=== PATIENT | female | born 1940 | race Caucasian/White ===

== ENCOUNTER 2020-05-19 16:28 | Emergency (ER) | payer MEDICARE, BC ==
[~2020-05-19] VITALS: Ht 167.6 cm; Wt 105.0 kg
[2020-05-19] MEDS ORDERED: BACITRACIN ZINC TOPICAL OINT PACKET. TP ONE (17:15)
[2020-05-19] MEDS ORDERED: HYDROcodone/APAP 5/325MG 1 TAB TABLET PO ONE (17:15)
[2020-05-19] MEDS ORDERED: HYDROcodone/APAP 5/325MG 1 TAB TABLET ONE (17:19)
--- NOTE | 2020-05-19 17:59 | RAD ---
Study: XR SHOULDER_LEFT 2+ VIEWS Indication: Fall. Comparison: None. Findings: Noting osteopenia no acute fracture is identified at the left shoulder girdle. Glenohumeral and acrom ioclavicular joint alignment is maintained. Small focus of chronic mineralization projecting adjacent to the superior glenoid. Mild glenohumeral and acromioclavicular joint arthrosis. No displaced fracture of the partially assessed ribs. Impression: Noting osteopenia no acute fracture is identified at the left shoulder. No traumatic malalignment. Electronically signed by: RAFAELA FISHER MD (05/19/2020 5:57 PM) [facility]
--- NOTE | 2020-05-19 18:07 | RAD ---
STUDY: 1. CT head without contrast 2. CT maxillofacial without contrast 3. CT cervical spine without contrast INDICATION: Fall. Blunt head injury. COMPARISON: None. TECHNIQUE: Axial CT imaging of the head, maxillofacial structures and cervical spine performed withou t the use of intravenous contrast. Sagittal and coronal reformats were obtained. One or more of the following individualized dose reduction techniques were utilized for this examinat ion: 1. Automated exposure control 2. Adjustment of the mA and/or kV according to patient size 3. Use of iterative reconstruction technique. FINDINGS: CT HEAD: Mild study degradation on account of streak artifact. Diagnostic utility is mostly maintained. No acute intracranial hemorrhage. No localized mass effect, midline shift or hydrocephalus. Hernandez-whit e matter differentiation is maintained. Parenchymal volume loss and white matter findings most frequently on account of chronic microvascular ischemic change. Intracranial calcific atherosclerosis. No large scalp hematoma. Unremarkable orbits. No depressed calvarial fracture. CT MAXILLOFACIAL: No acute facial bone fracture. No traumatic malalignment across the temporomandibular joints. Numerou s missing teeth and several dental caries. No hemorrhage within the paranasal sinuses. Normally aerat ed mastoid air cells and middle ears. No retrobulbar hematoma. Symmetric globes. CT CERVICAL SPINE: No acute fracture or traumatic malalignment. Scattered cervical spondylosis without evidence for paxton re central canal narrowing. Predominantly mild osseous neural foraminal stenosis at several levels. Scattered calcific atherosclerosis. Retropharyngeal course of both cervical ICAs. Possible left thyro id lobe nodule not meeting size criteria for dedicated follow-up measuring approximately 1.3 cm. No a pical pneumothorax. IMPRESSION: CT HEAD: 1. No acute intracranial abnormality by CT. CT MAXILLOFACIAL: 1. No acute facial bone fracture. CT CERVICAL SPINE: 1. No acute fracture or traumatic malalignment. 2. Chronic observations detailed in the body the report. Electronically signed by: RAFAELA FISHER MD (05/19/2020 6:04 PM) [facility]
--- NOTE | 2020-05-19 18:10 | RAD ---
CT pelvis without contrast HISTORY: Hip pain after fall Axial helical images of the pelvis obtained without contrast and axial coronal and sagittal contrast was performed. The visualized osseous structures are grossly intact. The femoral acetabular relationship is normal b ilaterally. There is no free fluid. The urinary bladder appears normal. IMPRESSION: No acute findings. End impression CT lumbar spine without contrast History: Left hip pain after fall Axial helical images of the lumbar spine were obtained without contrast. Axial, coronal and sagittal reconstruction was performed. Findings: The vertebral bodies are aligned. There is no loss of vertebral body stature. Evaluation of the central canal is limited without contrast. Mild diffuse circumferential disc bulge and hypertrophy of facets and ligamentum flavum results in mi nimal central stenosis at L3-L4 and mild central stenosis at L4-L5. The neuroforamen are patent. There is multiple renal cysts on the left. This patchy opacity in the right lower lobe. Impression: 1. Right lower lobe infiltrate could be pneumonia. 2. Mild degenerative changes; no acute findings in the lumbosacral spine. End impression PQRS Compliance Statement: One or more of the following individualized dose reduction techniques were utilized for this examinat ion: 1. Automated exposure control 2. Adjustment of the mA and/or kV according to patient size 3. Use of iterative reconstruction technique Electronically signed by: Montana Cabrera III, MD (05/19/2020 6:07 PM) [facility]
--- NOTE | 2020-05-19 18:27 | PHYS DOC ---
Past History Past Medical History: Arthritis, High Cholesterol, Hypertension Additional Past Medical Histor: low potassium Past Surgical History: Appendectomy, Cholecystectomy, Hysterectomy, Tonsillectomy, Other Additional Past Surgical Histo: right shoulder Alcohol Use: None Adult General Chief Complaint Chief Complaint: MECHANICAL FALL HPI HPI Patient is a 79-year-old female presents to the emergency department complaining of a fall just prior to arrival. Patient states she was walking through a door when she tripped over the threshold and fell forward onto her face. Patient denies loss of consciousness, denies dizziness, complains of mild headache, states she has no neck pain, has face pain, left shoulder pain, left hip pain, and low back pain. Patient reports her pain a 8/10 on a 1-10 pain scale. Patient states that she is unsure of her low back hurts any worse than normal as she has chronic low back pain and treats with daily hydrocodone. Patient denies chest pain, denies chest congestion, denies shortness of breath, denies nasal congestion, denies sore throat, denies vision changes. Patient denies any other physical complaints or physical concerns. Patient denies allergies to medications, reports a surgical history of appendectomy, gallbladder removed, hysterectomy, right rotator cuff, right ankle ganglion removal. Patient reports her last tetanus immunization approximately 3 years ago. Review of Systems Review of Systems 14 body systems of review of systems have been reviewed. See HPI for pertinent positives and negative responses, otherwise all other systems are negative, nonpertinent or noncontributory. Current Medications Current Medications Patient reports taking Synthroid, a diuretic, carvedilol, and potassium supplement, 5/325 hydrocodone for chronic back pains. Current Medications Medications (Trade) Dose Ordered Sig/Jamie Start Time Stop Time Status Last Admin Dose Admin Acetaminophen/ Hydrocodone Bitart (Lortab 5/325) 1 tab STK-MED ONCE 05/19/20 17:19 05/19/20 17:19 DC Bacitracin (Bacitracin Topical Pkt) 1 pkt 1X ONCE 05/19/20 17:15 05/19/20 17:19 DC 05/19/20 17:21 1 PKT Allergies Allergies Allergies Coded Allergies Type Severity Reaction Last Updated Verified aspirin Adverse Reaction Mild 05/19/20 Yes Physical Exam Physical Exam Constitutional: Well developed, well nourished, no acute distress, non-toxic appearance. 79-year-old female in no apparent distress. HENT: Normocephalic, atraumatic, bilateral external ears normal, oropharynx moist, no oral exudates, nose normal. No trismus appreciated, no drooling. No abnormality with bite. Dentition intact, abrasion to face at chin and nose. No depressions or swelling noted to the head or scalp. No lymphadenopathy of the head or neck appreciated. Eyes: PERRLA, EOMI, conjunctiva normal, no discharge. Pupils 3 mm. Neck: Normal range of motion, no tenderness, supple, no stridor. No midline C- spine tenderness, no meningismus signs, no nuchal rigidity appreciated. Cardiovascular:Heart rate regular rhythm, no murmur, heart sounds S1-S2 to auscultation. Lungs & Thorax: Bilateral breath sounds clear to auscultation all lung jamil, no adventitious lung sounds appreciated. Abdomen: Bowel sounds normal, soft, no tenderness, no masses, no pulsatile masses. Skin: Warm, dry, no erythema, no rash. Abrasion to nose and chin. No bleeding appreciated. Back: No CVA tenderness on the right or left, pain to lumbar area to palpation.. Extremities: No tenderness, no cyanosis, no clubbing, ROM intact, no edema. Except for right shoulder, pain to palpation anterior aspect right shoulder, limited passive range of motion related to pain, distal radial pulse 2+, distal cap refill less than 2 seconds. No deformity appreciated, no crepitus appreciated. Patient left hip pain to palpation, no deformity appreciated, no external rotation or shortening of left lower extremity appreciated, no crepitus appreciated, distal cap refill less than 2 seconds, 2+ dorsalis pedis/posterior tibial pulse. Neurologic: Alert and oriented X 3, normal motor function, normal sensory function, no focal deficits noted. Psychologic: Affect normal, judgement normal, mood normal. Current Patient Data Vital Signs Vital Signs Date Time Temp Pulse Resp B/P (MAP) Pulse Ox O2 Delivery O2 Flow Rate FiO2 05/19/20 17:21 18 97 05/19/20 16:28 98.6 64 190/91 (124) EKG EKG [] Radiology/Procedures Radiology/Procedures PATIENT: KIARA GALLEGOS MACCOUNT: [id number] : 1940 LOCATION: ER AGE: 79 SEX: F EXAM STATUS: REG ER ORD. PHYSICIAN: DANYA HEIN APRN REASON: FALL PROCEDURE: SHOULDER 2+V LEFT Study: XR SHOULDER_LEFT 2+ VIEWS Indication: Fall. Comparison: None. Findings: Noting osteopenia no acute fracture is identified at the left shoulder girdle. Glenohumeral and acromioclavicular joint alignment is maintained. Small focus of chronic mineralization projecting adjacent to the superior glenoid. Mild glenohumeral and acromioclavicular joint arthrosis. No displaced fracture of the partially assessed ribs. Impression: Noting osteopenia no acute fracture is identified at the left shoulder. No traumatic malalignment. Electronically signed by: RAFAELA FISHER MD (05/19/2020 5:57 PM) [facility] DICTATED AND SIGNED BY: RAFAELA FISHER MD DATE: 05/19/201754 CC: DANYA HEIN APRN; JAMEY BLAIR MD ~MTH0 0 PATIENT: KIARA GALLEGOS MACCOUNT: [id number] : 1940 LOCATION: ER AGE: 79 SEX: F EXAM STATUS: REG ER ORD. PHYSICIAN: DANYA HEIN APRN REASON: FALL,FALL, LEFT HIP PAIN PROCEDURE: CT PELVIS WO CONTRAST CT pelvis without contrast HISTORY: Hip pain after fall Axial helical images of the pelvis obtained without contrast and axial coronal and sagittal contrast was performed. The visualized osseous structures are grossly intact. The femoral acetabular relationship is normal bilaterally. There is no free fluid. The urinary bladder appears normal. IMPRESSION: No acute findings. End impression CT lumbar spine without contrast History: Left hip pain after fall Axial helical images of the lumbar spine were obtained without contrast. Axial, coronal and sagittal reconstruction was performed. Findings: The vertebral bodies are aligned. There is no loss of vertebral body stature. Evaluation of the central canal is limited without contrast. Mild diffuse circumferential disc bulge and hypertrophy of facets and ligamentum flavum results in minimal central stenosis at L3-L4 and mild central stenosis at L4-L5. The neuroforamen are patent. There is multiple renal cysts on the left. This patchy opacity in the right lower lobe. Impression: 1. Right lower lobe infiltrate could be pneumonia. 2. Mild degenerative changes; no acute findings in the lumbosacral spine. End impression PQRS Compliance Statement: One or more of the following individualized dose reduction techniques were utilized for this examination: 1. Automated exposure control 2. Adjustment of the mA and/or kV according to patient size 3. Use of iterative reconstruction technique Electronically signed by: Corinne Pruitt III, MD (05/19/2020 6:07 PM) [facility] DICTATED AND SIGNED BY: CORINNE PRUITT III, MD DATE: 05/19/20 1800 CC: DANYA HEIN APRN; JAMEY BLAIR MD ~MTH0 0 PATIENT: KIARA GALLEGOS MACCOUNT: [id number] : 1940 LOCATION: ER AGE: 79 SEX: F EXAM STATUS: REG ER ORD. PHYSICIAN: DANYA HEIN APRN REASON: FALL, BLUNT HEAD INJURY PROCEDURE: CT HEAD AND MAXILLOFACIAL WO STUDY: 1. CT head without contrast 2. CT maxillofacial without contrast 3. CT cervical spine without contrast INDICATION: Fall. Blunt head injury. COMPARISON: None. TECHNIQUE: Axial CT imaging of the head, maxillofacial structures and cervical spine performed without the use of intravenous contrast. Sagittal and coronal reformats were obtained. One or more of the following individualized dose reduction techniques were utilized for this examination: 1. Automated exposure control 2. Adjustment of the mA and/or kV according to patient size 3. Use of iterative reconstruction technique. FINDINGS: CT HEAD: Mild study degradation on account of streak artifact. Diagnostic utility is mostly maintained. No acute intracranial hemorrhage. No localized mass effect, midline shift or hydrocephalus. Hernandez-white matter differentiation is maintained. Parenchymal volume loss and white matter findings most frequently on account of chronic microvascular ischemic change. Intracranial calcific atherosclerosis. No large scalp hematoma. Unremarkable orbits. No depressed calvarial fracture. CT MAXILLOFACIAL: No acute facial bone fracture. No traumatic malalignment across the tempo romandibular joints. Numerous missing teeth and several dental caries. No hemorrhage within the paranasal sinuses. Normally aerated mastoid air cells and middle ears. No retrobulbar hematoma. Symmetric globes. CT CERVICAL SPINE: No acute fracture or traumatic malalignment. Scattered cervical spondylosis without evidence for severe central canal narrowing. Predominantly mild osseous neural foraminal stenosis at several levels. Scattered calcific atherosclerosis. Retropharyngeal course of both cervical IC As. Possible left thyroid lobe nodule not meeting size criteria for dedicated follow-up measuring approximately 1.3 cm. No apical pneumothorax. IMPRESSION: CT HEAD: 1. No acute intracranial abnormality by CT. CT MAXILLOFACIAL: 1. No acute facial bone fracture. CT CERVICAL SPINE: 1. No acute fracture or traumatic malalignment. 2. Chronic observations detailed in the body the report. Electronically signed by: RAFAELA FISHER MD (05/19/2020 6:04 PM) [facility] DICTATED AND SIGNED BY: RAFAELA FISHER MD DATE: 05/19/201756 CC: DANYA HEIN APRN; JAMEY BLAIR MD ~MTH0 0 Heart Score C/O Chest Pain: No Risk Factors: Risk Factors: DM, Current or recent (<one month) smoker, HTN, HLP, family history of CAD, obesity. Risk Scores: Risk Factors: DM, Current or recent (<one month) smoker, HTN, HLP, family history of CAD, obesity. Course & Med Decision Making Course & Med Decision Making Pertinent Labs and Imaging studies reviewed. (See chart for details) 79-year-old female, vital signs reviewed, presents emergency department concerning trip and fall just prior to arrival. Physical examination concerning for possible head, C-spine, left shoulder, left hip, low back injury related to fall. Abrasions to face. patient's tetanus status is up-to-date. ED nursing cleansed patient's abrasions and applied bacitracin ointment. CT and x-ray imaging was ordered. CT and x-ray imaging of head, maxillofacial bones, C-spine, left shoulder, left hip and pelvis, L-spine were negative for acute fracture or acute findings except for an incidental finding of a right lower lobe infiltrate with suspected pneumonia per house radiologist interpretation. Upon reevaluation of the patient, the patient's vital signs remain within normal limits, the patient is not hypoxic, the patient denies chest pain or shortness of breath. Discussed with patient this incidental finding, will start on oral antibiotics in the ED today and prescribe oral antibiotics for treatment of community-acquired pneumonia. The patient's curb 65 score equals 1, low likelihood of complications, recommendation to treat outpatient. Patient has good follow-up with her primary care physician Dr. Montes. Patient states she will call Dr. Montes tomorrow for a follow-up appointment and further investigation of this right lower lobe infiltrate. Patient states she will continue to take her prescribed hydrocodone for pain. Patient gave verbal understanding of discharge home instructions, follow-up with primary care for abnormal CT, antibiotic use, return to ER precautions and concerns, patient had no further questions or concerns and was discharged home without incident. Dragon Disclaimer Dragon Disclaimer This electronic medical record was generated, in whole or in part, using a voice recognition dictation system. Departure Departure: Impression: Primary Impression: Fall from slip, trip, or stumble Additional Impressions: Facial abrasion Contusion of left shoulder Facial contusion Contusion of left hip Abnormal CT scan Community acquired pneumonia Disposition: 01 DC HOME SELF CARE/HOMELESS Condition: GOOD Referrals: JAMEY BLAIR MD (PCP) Patient Instructions: Pneumonia, Adult Additional Instructions: You are seen today for a trip and fall, the CT scanning and x-ray of your face, head, neck, right shoulder, lumbar spine, pelvis and left hip were negative for acute fracture, however the CT of your lumbar spine showed a possible pneumonia in your right lower lobe. I am starting you on antibiotics tonight, I have sent the antibiotic prescription to the pharmacy of your choice, please start tomorrow, please call Dr. Montes tomorrow for further evaluation of this pneumonia. Please return to the emergency department for worsening symptoms or other concerns. EMERGENCY DEPARTMENT GENERAL DISCHARGE INSTRUCTIONS Thank you for coming to [facility] (ED) today and trusting us with you care. We trust that you had a positivie experience in our Emergency Department. If you wish to speak to the department management, you may call the director at [phone]. YOUR FOLLOW UP INSTRUCTIONS ARE FOLLOWS: 1. Do you have a private Doctor? If you do not have a private doctor, please ask for a resource list of physicians or clinics that may be able to assist you with follow up care. 2. The Emergency Physician has interpreted your x-rays. The X-Ray specialist will also review them. If there is a change in the findings, you will be notified in 48 hours when at all possible. 3. A lab test or culture has been done, your results will be reviewed and you will be notified if you need a change in treatment. ADDITIONAL INSTRUCTIONS AND INFORMATION: 1. Your care today has been supervised by a physician who is specially trained in emergency care. Many problems require more than one evaluation for a complete diagnosis and treatment. We recommend that you schedule your follow up appointment as recommended to ensure complete treatment of you illness or injury. If you are unable to obtain follow up care and continue to have a problem, or if your condition worsens, we recommend that you return to the ED. 2. We are not able to safely determine your condition over the phone nor are we able to give sound medical advice over the phone. For these safety reasons, if you call for medical advice we will ask you to come to the ED for further evaluation. 3. If you have any questions regarding these discharge instructions please call the ED at [phone]. SAFETY INFORMATION: In the interest of safety, wellness, and injury prevention; we encourage you to wear your sealbelt, if you smoke; quite smoking, and we encourage family to use a protective helmet for bicycling and other sporting events that present an increased risk for head injury. IF YOUR SYMPTOMS WORSEN OR NEW SYMPTOMS DEVELOP, OR YOU HAVE CONCERNS ABOUT YOUR CONDITION; OR IF YOUR CONDITION WORSENS WHILE YOU ARE WAITING FOR YOUR FOLLOW UP APPOINTMENT; EITHER CONTACT YOUR PRIMARY CARE DOCTOR, THE PHYSICIAN WHOSE NAME AND NUMBER YOU WERE GIVEN, OR RETURN TO THE ED IMMEDIATELY. Scripts Azithromycin (AZITHROMYCIN TABLET) 250 Mg Tablet 1 PKG PO UD for PNEUMONIA for 5 Days, #6 TAB 0 Refills 2 the first day followed by 1 for days 2-5 Prov: DANYA HEIN APRN 05/19/20 Problem Qualifiers Primary Impression: Fall from slip, trip, or stumble Encounter type: initial encounter Qualified Codes: W01.0XXA - Fall on same level from slipping, tripping and stumbling without subsequent striking against object, initial encounter Additional Impressions: Facial abrasion Encounter type: initial encounter Qualified Codes: S00.81XA - Abrasion of other part of head, initial encounter Contusion of left shoulder Encounter type: initial encounter Qualified Codes: S40.012A - Contusion of left shoulder, initial encounter Facial contusion Encounter type: initial encounter Qualified Codes: S00.83XA - Contusion of other part of head, initial encounter Contusion of left hip Encounter type: initial encounter Qualified Codes: S70.02XA - Contusion of left hip, initial encounter Community acquired pneumonia Laterality: right Lung location: lower lobe of lung Qualified Codes: J18.9 - Pneumonia, unspecified organism DANYA HEIN APRN May 19, 2020 18:27
[2020-05-19] MEDS ORDERED: AZITHROMYCIN 250 MG TABLET. PO ONE (18:45)
[2020-05-19] MEDS ORDERED: AZIT250T6 PO (19:08)
[2020-05-19 19:18] VITALS: BP 165/65
== END 2020-05-19 19:18 | disposition home or self-care (01) ==
LOC: ER 16:28
DX: S00.83XA Contusion of other part of head, initial encounter (principal); S40.012A Contusion of left shoulder, initial encounter; S70.02XA Contusion of left hip, initial encounter; R94.8 Abnormal results of function studies of other organs and systems; J18.9 Pneumonia, unspecified organism; M19.90 Unspecified osteoarthritis, unspecified site; E78.00 Pure hypercholesterolemia, unspecified; I10 Essential (primary) hypertension; Z88.6 Allergy status to analgesic agent; W01.0XXA Fall on same level from slipping, tripping and stumbling without subsequent striking against object, initial encounter; Y93.01 Activity, walking, marching and hiking; Y92.89 Other specified places as the place of occurrence of the external cause; Y99.8 Other external cause status
CPT/HCPCS: 70450; 70486; 72125; 72131; 72192; 73030; 99285-25

== ENCOUNTER → 2020-05-27 | Outpatient (CLI) | payer MEDICARE, BC ==
[2020-05-19 19:18] VITALS: BP 165/65
[~2020-05-27] MED LIST: AZIT250T6 PO
--- NOTE | 2020-05-27 17:41 | RAD ---
Examination: Ultrasound thyroid HISTORY: History of thyroid nodule COMPARISON: None available FINDINGS: The right lower thyroid gland measures 2.6 x 1.1 x 0.8 cm .The left lobe of the thyroid gland measure s 3.7 x 1.5 x 1.3 cm. There is a 2.2 cm solid nodule with vascular flow within in the left lobe of th e thyroid gland. There is a 4 mm nodule identified in the right lower thyroid gland. The isthmus patrica ures 2 mm in AP dimension. IMPRESSION: 1. 2.2 cm nodule identified in the left lobe of thyroid gland. Recommend fine-needle aspiration. ACR TR4: Moderately suspicious. Electronically signed by: Nelson Parsons MD (05/27/2020 5:39 PM) [id number]
== END ==
LOC: US 13:19
PROVIDERS: ATTEND Family Medicine
DX: E04.2 Nontoxic multinodular goiter (principal)
CPT/HCPCS: 76536

== ENCOUNTER 2020-06-30 17:08 | Inpatient (IN) | payer MEDICARE ==
[~2020-06-30] VITALS: Ht 167.6 cm; Wt 100.7 kg
[2020-06-30] MEDS ORDERED: IV NORMAL SALINE 1,000ML 1,000 ML IV ONE (17:30)
--- NOTE | 2020-06-30 17:38 | EKG ---
[address] [address] Test Date: 2020-06-30 Test Time: 17:15:18 Pat Name: KIARA GALLEGOS Department: Room: Gender: F Yard Foreman: WM : 1940 Requested By: DANYA HEIN Order Number: [id number] Reading MD: Measurements Intervals Haugen Rate: 65 P: 28 MI: 200 QRS: 16 QRSD: 82 T: 36 QT: 416 QTc: 433 Interpretive Statements SINUS RHYTHM NORMAL ECG RI6.02 No previous ECG available for comparison
[2020-06-30] MEDS ORDERED: ONDANSETRON PF 4 MG/2 ML VIAL. ONE (17:48)
[2020-06-30 17:58] LABS: BASO % 0 % (0-3); EOS # 0.1 x10^3/uL (0.0-0.7); EOS % 1 % (0-3); HEMATOCRIT 41.5 % (36.0-47.0); HEMOGLOBIN 13.8 g/dL (12.0-15.5); LYMPH # 2.2 x10^3/uL (1.0-4.8); LYMPH % 20 % (24-48); MEAN CORPUSCULAR HEMOGLOBIN 30 pg (25-35); MEAN CORPUSCULAR HGB CONC 33 g/dL (31-37); MEAN CORPUSCULAR VOLUME 90 fL (79-100); MONO % 9 % (0-9); NEUT # 7.8 x10^3uL (1.8-7.7); NEUT % 70 % (31-73); PLATELET COUNT 273 x10^3/uL (140-400); RED BLOOD COUNT 4.64 x10^6/uL (3.50-5.40); RED CELL DISTRIBUTION WIDTH 13.6 % (11.5-14.5); WHITE BLOOD COUNT 11.1 x10^3/uL (4.0-11.0)
[2020-06-30] MEDS ORDERED: ONDANSETRON PF 4 MG/2 ML VIAL. IVP ONE (18:00)
[2020-06-30 18:04] LABS: CALCIUM 9.2 mg/dL (8.5-10.1); CREATININE 0.9 mg/dL (0.6-1.0); GFR 60.1; POTASSIUM 4.5 mmol/L (3.5-5.1)
[2020-06-30 18:10] LABS: ALBUMIN 3.6 g/dL (3.4-5.0); ALBUMIN/GLOBULIN RATIO 1.3 (1.0-1.7); TOTAL BILIRUBIN 1.9 mg/dL (0.2-1.0); TOTAL PROTEIN 6.4 g/dL (6.4-8.2)
--- NOTE | 2020-06-30 18:28 | PHYS DOC ---
Past History Past Medical History: Arthritis, GERD, High Cholesterol, Hypertension, Hypothyroid Additional Past Medical Histor: low potassium (ADALBERTO HEIN TERRAZZO HELPER) Past Surgical History: Appendectomy, Cholecystectomy, Hysterectomy, Tonsillectomy, Other Additional Past Surgical Histo: right shoulder (ADALBERTO HEIN APRN) Alcohol Use: None (ADALBERTO HEIN APRN) Adult General Chief Complaint Chief Complaint: HYPERTENSION HPI HPI Patient is a 79-year-old female presents emergency department complaining of decreased appetite over the past 10 days, feeling dizzy ever since syncopal episode while working in her garden approximately 2 days ago. Patient states that she lost balance while adjusting the bird feeder and fell backwards, patient states that she is unsure if she lost consciousness however this was not witnessed. Patient states that she hurts all over however has been hurting all over since she fell on May 19 of this year. Patient believes that her blood pressure is going high because when she goes from a sitting to a standing position her head pounds and her heart races. Patient denies chest pain, denies shortness of breath, denies cough fever chills nasal or chest congestion. Patient denies nausea vomiting constipation or diarrhea or abdominal pain. Diane maria reports her primary care physician is Dr. Montes, states she has no allergies to medicines but cannot tolerate aspirin as it upsets her stomach, takes Synthroid furosemide potassium Coreg and Protonix at home. Patient denies any other physical complaints or physical concerns. (ADALBERTO HEIN APRN) Review of Systems Review of Systems 14 body systems of review of systems have been reviewed. See HPI for pertinent positives and negative responses, otherwise all other systems are negative, nonpertinent or noncontributory. (ADALBERTO HEIN TERRAZZO HELPER) Current Medications Current Medications Current Medications Medications (Trade) Dose Ordered Sig/Jamie Start Time Stop Time Status Last Admin Dose Admin Fentanyl Citrate (Fentanyl 2ml Vial) 50 mcg 1X ONCE 06/30/20 18:15 06/30/20 18:16 DC Ondansetron HCl (Zofran) 4 mg 1X ONCE 06/30/20 18:00 06/30/20 18:01 DC 06/30/20 18:00 4 MG Sodium Chloride 1,000 ml @ 1,000 mls/hr 1X ONCE 06/30/20 17:30 06/30/20 18:29 06/30/20 17:30 1,000 MLS/HR (ADALBERTO HEIN APRN) Allergies Allergies Allergies Coded Allergies Type Severity Reaction Last Updated Verified aspirin Adverse Reaction Mild 05/19/20 Yes (ADALBERTO HEIN APRN) Physical Exam Physical Exam Constitutional: Well developed, well nourished, no acute distress, non-toxic appearance. 79-year-old female no apparent distress. HENT: Normocephalic, atraumatic, bilateral external ears normal, oropharynx moist, no oral exudates, nose normal. Oropharynx moist, pink, no deep tissue infectious process appreciated, no lymphadenopathy of the head or neck appreciated, bilateral TMs intact and within normal limits. No skull depressions, no contusions of the skull, no abrasions appreciated. No raccoon eyes, no dinh's sign appreciated. Eyes: PERRLA, EOMI, conjunctiva normal, no discharge. Neck: Normal range of motion, no tenderness, supple, no stridor. Cardiovascular:Heart rate regular rhythm, no murmur, heart sounds S1-S2 to auscultation. Lungs & Thorax: Bilateral breath sounds clear to auscultation no adventitious lung sounds appreciated. Abdomen: Bowel sounds normal, soft, no tenderness, no masses, no pulsatile masses. Skin: Warm, dry, no erythema, no rash. Back: No tenderness, no CVA tenderness. Extremities: No tenderness, no cyanosis, no clubbing, ROM intact, no edema. Neurologic: Alert and oriented X 3, normal motor function, normal sensory function, no focal deficits noted. Except for patient ataxia, patient unable to stand without "feeling shaky "and holding onto objects to remain balance. P atient unable to remain balance with eyes closed. Psychologic: Affect normal, judgement normal, mood normal. (ADALBERTO HEIN APRN) Current Patient Data Vital Signs Vital Signs Date Time Temp Pulse Resp B/P (MAP) Pulse Ox O2 Delivery O2 Flow Rate FiO2 06/30/20 18:12 97.5 66 153/72 (99) 99 06/30/20 17:25 18 Lab Results Laboratory Tests Test 06/30/20 17:37 White Blood Count 11.1 x10^3/uL (4.0-11.0) H Red Blood Count 4.64 x10^6/uL (3.50-5.40) Hemoglobin 13.8 g/dL (12.0-15.5) Hematocrit 41.5 % (36.0-47.0) Mean Corpuscular Volume 90 fL (79-100) Mean Corpuscular Hemoglobin 30 pg (25-35) Mean Corpuscular Hemoglobin Concent 33 g/dL (31-37) Red Cell Distribution Width 13.6 % (11.5-14.5) Platelet Count 273 x10^3/uL (140-400) Neutrophils (%) (Auto) 70 % (31-73) Lymphocytes (%) (Auto) 20 % (24-48) L Monocytes (%) (Auto) 9 % (0-9) Eosinophils (%) (Auto) 1 % (0-3) Basophils (%) (Auto) 0 % (0-3) Neutrophils # (Auto) 7.8 x10^3uL (1.8-7.7) H Lymphocytes # (Auto) 2.2 x10^3/uL (1.0-4.8) Monocytes # (Auto) 1.0 x10^3/uL (0.0-1.1) Eosinophils # (Auto) 0.1 x10^3/uL (0.0-0.7) Basophils # (Auto) 0.0 x10^3/uL (0.0-0.2) Sodium Level 141 mmol/L (136-145) Potassium Level 4.5 mmol/L (3.5-5.1) Chloride Level 104 mmol/L (98-107) Carbon Dioxide Level 32 mmol/L (21-32) Anion Gap 5 (6-14) L Blood Urea Nitrogen 14 mg/dL (7-20) Creatinine 0.9 mg/dL (0.6-1.0) Estimated GFR (Cockcroft-Gault) 60.1 BUN/Creatinine Ratio 16 (6-20) Glucose Level 106 mg/dL (70-99) H Calcium Level 9.2 mg/dL (8.5-10.1) Total Bilirubin 1.9 mg/dL (0.2-1.0) H Aspartate Amino Transferase (AST) 24 U/L (15-37) Alanine Aminotransferase (ALT) 19 U/L (14-59) Alkaline Phosphatase 66 U/L (46-116) Troponin I Quantitative < 0.017 ng/mL (0-0.055) Total Protein 6.4 g/dL (6.4-8.2) Albumin 3.6 g/dL (3.4-5.0) Albumin/Globulin Ratio 1.3 (1.0-1.7) (ADALBERTO HEIN APRN) EKG EKG EKG performed at 1715 by house respiratory therapy staff shows a normal sinus rhythm without ectopy heart rate 65 bpm, GA interval 0.20, QTc interval 0.433, no acute STEMI, no ACS, no acute ischemia appreciated, EKG interpreted by ED attending physician Dr. Adalberto Flower. (ADALBERTO HEIN APRN) Radiology/Procedures Radiology/Procedures PATIENT: KIARA GALLEGOSCOUNT: [id number] : 1940 LOCATION: ER AGE: 79 SEX: F EXAM STATUS: REG ER ORD. PHYSICIAN: ADALBERTO HEIN APRN REASON: DIZZYNESS,WEAKNESS PROCEDURE: CHEST PA & LATERAL EXAM: PA and Lateral Views of the Chest DATE: 06/30/2020 5:32 PM INDICATION: Reason: DIZZYNESS,WEAKNESS / Spl. Instructions: / History: COMPARISON: No Prior FINDINGS: The heart is not enlarged. Mediastinal and hilar contours are normal. No focal parenchymal airspace opacity. No pleural effusion or pneumothorax. IMPRESSION: 1. No radiographic evidence for acute cardiopulmonary process. Electronically signed by: Butch Garcia MD (06/30/2020 7:02 PM) [facility] DICTATED AND SIGNED BY: BUTCH GARCIA MD DATE: 06/30/201900 CC: ADALBERTO HEIN APRN; EMERGENCY,DEPARTMENT; IVAN ZACARIAS ~MTH0 0 PATIENT: KIARA GALLEGOS MACCOUNT: [id number] : 1940 LOCATION: ER AGE: 79 SEX: F EXAM STATUS: REG ER ORD. PHYSICIAN: EMERGENCY,DEPARTMENT REASON: Fall, dizziness PROCEDURE: CT HEAD WO CONTRAST EXAMINATION: CT HEAD/BRAIN WO (CT HEAD WITHOUT IV CONTRAST) CLINICAL HISTORY: Fall, dizziness TECHNIQUE: Serial axial images without IV contrast were obtained from the vertex to the foramen magnum. CT Dose Reduction Employed: One or more of the following individualized dose reduction techniques were utilized for this examination: 1. Automated exposure control 2. Adjustment of the mA and/or kV according to patient size 3. Use of iterative reconstruction technique. COMPARISON: 05/19/2020 FINDINGS: Acute Change: No evidence of an acute contusion or other acute parenchymal process. Hemorrhage: No evidence of acute intracranial hemorrhage. Mass Lesion/Mass Effect: No evidence of intracranial mass or extraaxial fluid collection. No significant mass effect. Chronic Change: Patchy hypoattenuation in the supratentorial white matter, nonspecific but likely represents mild to moderate microvascular ischemia. Atherosclerotic calcification of the bilateral carotid siphons. Parenchyma: Mild to moderate generalized volume loss. Parenchyma otherwise within normal limits for age. Ventricles: Ventricular enlargement concordant with degree of parenchymal volume loss. Paranasal Sinuses and Skull Base: Visualized paranasal sinuses clear. No evidence of acute calvarial fracture. IMPRESSION: No evidence of acute intracranial abnormality or significant interval change. Electronically signed by: Thanh Jara DO (06/30/2020 7:35 PM) [facility] DICTATED AND SIGNED BY: THANH JARA DO DATE: 06/30/201931 CC: EMERGENCY,DEPARTMENT; BRAYANESSIEJoseIVAN aLw ~MTH0 0 (ADALBERTO HEIN APRN) Heart Score C/O Chest Pain: No Risk Factors: Risk Factors: DM, Current or recent (<one month) smoker, HTN, HLP, family history of CAD, obesity. Risk Scores: Risk Factors: DM, Current or recent (<one month) smoker, HTN, HLP, family history of CAD, obesity. (ADALBERTO HEIN APRN) Course & Med Decision Making Course & Med Decision Making Pertinent Labs and Imaging studies reviewed. (See chart for details) 79-year-old female, vital signs reviewed, presents to the emergency department concerning decreased appetite, syncopal episode at home. Will order CT head, cardiopulmonary work-up. Patient's labs unremarkable, patient CT head and chest x-ray unremarkable for acute process. Patient was initially orthostatic with a sitting blood pressure of 153/72 heart rate 66 to standing 124/53 heart rate 89, patient was treated with 1 L normal saline during her emergency department stay. Upon reevaluation of the patient, patient remained ataxic, unable to remain standing with eyes closed. Patient unable to take more than 1 step without self assistance holding onto furniture. Patient did complain of feeling very shaky, denied dizziness or room spinning during this episode. Patient did have a head injury on May 192020 in which she stumbled through a doorway and landed on her face. She was examined and released at that time with close head injury and concussion. It is unknown whether she was ataxic prior to the fall or not. Discussed with patient admission to hospital for further evaluation of her ataxia. Patient is amenable to this plan. Reviewed and discussed patient case with inpatient hospitalist Dr. Adonay Cardenas who has agreed to admit patient to the Medr unit with the diagnosis of ataxia. Dr. Cardenas requested consult of neurology Dr. Ibarra and a.m. PT/OT consult. Dr. Cardenas has assumed patient care at this time. (ADALBERTO HEIN APRN) Dragon Disclaimer Dragon Disclaimer This electronic medical record was generated, in whole or in part, using a voice recognition dictation system. (ADALBERTO HEIN APRN) Departure Departure: Impression: Primary Impression: Ataxia Disposition: ADMITTED INPATIENT Admitting Physician: Adonay Cardenas (Admit to the medical surgical unit for the diagnosis of ataxia to Dr. Adonay Cardenas) (ADALBERTO HEIN APRN) Condition: GUARDED Referrals: IVAN ZACARIAS (PCP) Attending Signature Attending Signature I have reviewed the PA/HAIRSPRING VIBRATOR's note and plan of care. I was available for consul tation as needed during the patient's visit in the emergency department. I agree with the clinical impression, plan, and disposition. (ADALBERTO FLOWER DO) ADALBERTO HEIN APRN June 30, 2020 18:28 ADALBERTO FLOWER DO July 01, 2020 01:12
--- NOTE | 2020-06-30 19:05 | RAD ---
EXAM: PA and Lateral Views of the Chest DATE: 06/30/2020 5:32 PM INDICATION: Reason: DIZZYNESS,WEAKNESS / Spl. Instructions: / History: COMPARISON: No Prior FINDINGS: The heart is not enlarged. Mediastinal and hilar contours are normal. No focal parenchymal airspace opacity. No pleural effusion or pneumothorax. IMPRESSION: 1. No radiographic evidence for acute cardiopulmonary process. Electronically signed by: Butch Chahal MD (06/30/2020 7:02 PM) [facility]
--- NOTE | 2020-06-30 19:37 | RAD ---
EXAMINATION: CT HEAD/BRAIN WO (CT HEAD WITHOUT IV CONTRAST) CLINICAL HISTORY: Fall, dizziness TECHNIQUE: Serial axial images without IV contrast were obtained from the vertex to the foramen magnu m. CT Dose Reduction Employed: One or more of the following individualized dose reduction techniques wer e utilized for this examination: 1. Automated exposure control 2. Adjustment of the mA and/or kV ac cording to patient size 3. Use of iterative reconstruction technique. COMPARISON: 05/19/2020 FINDINGS: Acute Change: No evidence of an acute contusion or other acute parenchymal process. Hemorrhage: No evidence of acute intracranial hemorrhage. Mass Lesion/Mass Effect: No evidence of intracranial mass or extraaxial fluid collection. No signific ant mass effect. Chronic Change: Patchy hypoattenuation in the supratentorial white matter, nonspecific but likely rep resents mild to moderate microvascular ischemia. Atherosclerotic calcification of the bilateral carot id siphons. Parenchyma: Mild to moderate generalized volume loss. Parenchyma otherwise within normal limits for a ge. Ventricles: Ventricular enlargement concordant with degree of parenchymal volume loss. Paranasal Sinuses and Skull Base: Visualized paranasal sinuses clear. No evidence of acute calvarial fracture. IMPRESSION: No evidence of acute intracranial abnormality or significant interval change. Electronically signed by: Thanh Walsh DO (06/30/2020 7:35 PM) [facility]
[2020-06-30 22:00] VITALS: BP 170/74
--- NOTE | 2020-06-30 22:00 | NUR ---
ADMISSION: The patient, KIARA GALLEGOS, 79 y/o, F admitted by SARAH MCKINNEY MD, was given written information regarding hospital policies, unit procedures and contact persons. Pt arrived to room 109 via gurney, accompanied by [facility] and nursing sup. Pt amb x2 assist from gurney to bed, c/o dizziness and weakness x1 week. Pt is unsteady and tends to lean forward when ambulating. Pt noted to have orthostatic hypotension in ED. PMH and home meds reviewed with pt. Reports she had a fall in May with extensive work up, and incidentally found a growth on her thyroid which was biopsied yesterday. Pt resides at home alone, recently in [place]. Pt's son and DIL live close by and are involved daily. Pt received both doses of the Moderna COVID-19 vaccine. Teds for VTE. Bed alarmed for safety. Call light in reach. Currently sitting up in bed, eating crackers per request. Valuables were checked and logged. Left in room with pt.
[2020-06-30] MEDS ORDERED: HYDR-2759 PO (22:58)
[2020-06-30] MEDS ORDERED: BIOT1TAB2 PO (22:58)
[2020-06-30] MEDS ORDERED: ESCITALOPRAM OX20 MG PO (22:58)
[2020-06-30] MEDS ORDERED: POTA10TA5 PO (22:58)
[2020-06-30] MEDS ORDERED: FURO20TA3 PO (22:58)
[2020-06-30] MEDS ORDERED: LIPITOR80 MG PO (22:58)
[2020-06-30] MEDS ORDERED: PANT40TA3 PO (22:58)
[2020-06-30] MEDS ORDERED: LEVO100T PO (22:58)
[2020-06-30] MEDS ORDERED: MULT-658 PO (22:58)
[2020-06-30] MEDS ORDERED: CARV25TA2 PO (22:58)
[2020-07-01] VITALS (8 sets, daily range): BP systolic 126–176; BP diastolic 60–88
[2020-07-01 01:49] LABS: BACTERIA,URINE FEW /HPF (0-FEW); BILIRUBIN,URINE NEG (NEG); CLARITY,URINE CLEAR; COLOR,URINE YELLOW; GLUCOSE,URINE NEG (NEG); NITRITE,URINE NEG (NEG); RBC,URINE 0 /HPF (0-2); SQUAMOUS EPITHELIAL CELL,UR OCC /LPF
[2020-07-01] MEDS: ONDANSETRON PF 4 MG/2 ML VIAL. IVP PRN (04:40)
[2020-07-01] MEDS: CARVEDILOL 12.5 MG TABLET PO SCH (16:18)
[2020-07-01] MEDS: POTASSIUM CHLORIDE 10 MEQ TABLET.ER. PO SCH (16:18)
--- NOTE | 2020-07-01 16:22 | HP ---
ADMIT DATE: 06/30/2020 HISTORY OF PRESENT ILLNESS: The patient is an 79-year-old female patient, who presented to the Emergency Room Department with a complaint of poor appetite that has been going on over the last 10 days, feeling dizzy ever since syncopal episode while working in her garden approximately 2 days ago. She states that she has lost balance while adjusting the bird feeder and fell backward. The patient stated that she is unsure if she has lost consciousness; however, this was not witnessed. She denied any biting her tongue or being incontinent of bowel or bladder. She stated that she hurts all over; however, she has been hurting all over since she fell about on 05/19 this year. She stated that she believes that her blood pressure is going high because when she goes from sitting to standing position, her head pounds and her heart races. She denied any chest pain, denied any shortness of breath. She said that since her on 03/25/2020, her appetite has been very poor and has lost about 40 pounds unintentionally. She did have some diarrhea this morning, but none over the last few days. She was extensively investigated in the Emergency Room, has had lab work that was mostly unremarkable and urinalysis was also unremarkable. Has had imaging studies including a chest x-ray which showed that the heart is not enlarged. The mediastinum and hilar contours are normal. No focal parenchymal airspace opacities. No pleural effusion or pneumothorax. Did have a CT scan of the head, showed no evidence of acute intracranial abnormality or significant interval change. She was admitted and will put on telemetry bed and for further investigation, we will consult Dr. Ibarra. She apparently has a mass in her thyroid gland that was biopsied 3 days ago, the results are still pending at the time of this dictation. PAST MEDICAL HISTORY: Significant for hypertension, hyperlipidemia, hypothyroidism, osteoarthritis, degenerative disk disease and chronic back pain. PAST SURGICAL HISTORY: Significant for thyroid biopsy done recently, total abdominal hysterectomy, bilateral salpingo-oophorectomy, tonsillectomy, appendectomy, cholecystectomy, right rotator cuff repair, right carpal tunnel release. She underwent esophagogastroduodenoscopy and colonoscopy. ALLERGIES: SHE IS ALLERGIC TO ASPIRIN. MEDICATIONS: She is currently on the following medications. She is on atorvastatin, calcium 80 mg at bedtime, carvedilol 25 mg twice a day, hydrocodone/APAP 5/325 one tablet twice a day, escitalopram oxalate 20 mg daily, potassium chloride 10 mEq twice a day, furosemide 20 mg daily, Protonix 40 mg daily, levothyroxine sodium 100 mcg once a day, Biotin 1 mg daily, multivitamin with mineral 1 tablet once a day. FAMILY HISTORY: She has 2 brothers older and both , one of myocardial infarction and both of them were diabetic. Her father at age of 47 because of coronary artery disease and myocardial infarction. She knew her biological mother late in life and does not know her age or the cause of her . SOCIAL HISTORY: She is . Her daughter at the age of 61 because of stage IV pancreatic cancer. She has 3 sons, alive and healthy. She quit smoking in 1980. She does not drink alcohol or use recreational drugs. 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 REVIEW OF SYSTEMS: The patient denied any blurring of vision, cataracts, glaucoma or macular degeneration. Denied any earache, tinnitus or sensorineural deafness. Denied any nosebleed, stuffy nose. She has chronic sinusitis. Denied any postnasal drip. Denied any sore throat, sore tongue, toothache, hoarseness of voice or difficulty swallowing. Denied any nausea or vomiting. Did have some diarrhea, but denies any hematemesis, melena or hematochezia. Denied any dysuria, frequency or hematuria. Denied any chest pain, shortness of breath, orthopnea or paroxysmal nocturnal dyspnea. Denied any cough, phlegm or hemoptysis. Did complain of dizziness. Denied any vertigo or things spinning around. She tripped on 05/19 and fell hitting her face, but at this time she just have what looked like almost a drop attack and fell backward in her backyard. Normally, she used to be able to walk without any assistance or assistive devices but for the last 2 weeks she is too weak that now she has to use her walker and/or a cane. PHYSICAL EXAMINATION: GENERAL: On arrival to the Emergency Room, there was no pallor, jaundice, cyanosis or thyromegaly. No jugular venous distention. No limb edema. VITAL SIGNS: Her heart rate was 68, blood pressure was 165/60, her temperature was 97.5, respiratory rate was 18 and oxygen saturation was 99% on room air. HEAD, EYES, EARS, NOSE AND THROAT: Normocephalic, atraumatic. NECK: Supple. HEART: Showed normal first and second heart sounds. No gallop, murmur. CHEST: Clear to auscultation, no crepitation or rhonchi. ABDOMEN: Distended, soft, nontender. NEUROLOGIC: She was awake, alert, responding appropriately. All her cranial nerves intact. She moves extremities without difficulty. She was able to ambulate with a walker. LABORATORY WORK: Showed a white cell count of 11,100, hemoglobin 14, hematocrit 42, MCV 90 and platelet count of 273,000. Her chemistry showed a serum sodium 141, potassium 4.5, chloride 104, bicarbonate 32, anion gap of 5, BUN 14, creatinine 0.9. Estimated GFR was 60 mL per minute. Her glucose was 106, calcium was 9.2, total bilirubin was 1.9. AST, ALT, alkaline phosphatase were normal. Her total protein was 6.4, albumin was 3.6. Her urinalysis was essentially unremarkable. Her chest x-ray showed no radiographic evidence for acute cardiopulmonary process. Her CT scan of the head showed no evidence of acute confusion or other acute parenchymal process. There is no evidence of acute intracranial hemorrhage. There is no evidence of intracranial mass or extracranial fluid collection, no stigmata or no significant mass effect. She has patchy hypoattenuation in the supratentorial white matter, nonspecific, but likely represents mild to moderate microvascular ischemia. Atherosclerotic calcification of the bilateral carotid siphons. She has mild to moderate generalized volume loss, parenchyma otherwise within normal limits for age, ventricular enlargement, concordant to degree of parenchymal volume loss. She has paranasal sinuses and skull base. The visualized paranasal sinuses are clear. No evidence of acute calvarial fracture. ASSESSMENT AND PLAN: The patient was admitted for further evaluation. We will put her on telemetry bed. We will consult Dr. Ibarra. We will ask also physical and occupational therapy and order some lab work given the fact that she has lost unintentionally 40 pounds and now she has extreme weakness and dizziness. MILIND/KALEB DR: WARREN/kimberly TID: [id number]
[2020-07-01] MEDS: HYDROcodone/APAP 5/325MG 1 TAB TABLET PO PRN (20:01)
[2020-07-01] MEDS ORDERED: ATORVASTATIN CALCIUM 20 MG TABLET PO SCH (21:00)
--- NOTE | 2020-07-02 00:28 | PN ---
DATE: 07/01/2020 SUBJECTIVE: The patient is sitting comfortably in her chair in no apparent distress. She continued to complain of generalized weakness, although did not specifically and sometimes feeling dizzy, but denied any spinning of things and denied any further episode of fall. Denied any nausea, vomiting. PHYSICAL EXAMINATION: GENERAL: When I examined her this morning, she looked well and was clearly in no apparent respiratory distress. There was no pallor, jaundice, or cyanosis from thyromegaly. No jugular distention or limb edema. VITAL SIGNS: Heart rate was 54, blood pressure 146/82, temperature 97.9, respiratory rate 20, and oxygen saturation was 96% on room air. HEAD, EYES, EARS, NOSE AND THROAT: Normocephalic, atraumatic. NECK: Supple. HEART: Showed normal first and second heart sounds, no gallop or murmur. CHEST: Clear to auscultation. No crepitation or rhonchi. ABDOMEN: Distended, soft, nontender. NEUROLOGIC: She was awake, alert, responding appropriately. All cranial nerves intact. She moves extremities without difficulty. She ambulates with a walker. LABORATORY DATA: She has no lab work done this morning. ASSESSMENT: Generalized weakness, unintentional weight loss of more than 40 pounds, poor appetite and poor oral intake that dates back to March when her while in hospice. The patient has a mass in her thyroid that was biopsied 3 days ago. She has multiple medical problems including hypertension, hyperlipidemia, hypothyroidism, chronic back pain, osteoarthritis and degenerative disk disease. Her imaging studies were unrevealing. She did not really show any ataxic gait. PLAN: My plan is to monitor her on telemetry bed. I ordered some more lab work and await evaluation by the neurologist and decide on further management accordingly. I reconciled all her medication. I held her Lasix for now. JOSUE DR: Carlos TID: [id number]
[2020-07-02] MEDS ORDERED: ACETAMINOPHEN 325 MG TABLET PO PRN (02:45)
[2020-07-02] MEDS: ONDANSETRON PF 4 MG/2 ML VIAL. IVP PRN (03:03)
[2020-07-02] MEDS ORDERED: LEVOTHYROXINE 100 MCG TABLET PO SCH (06:00)
[2020-07-02] MEDS ORDERED: PANTOPRAZOLE 40 MG TABLET. PO SCH (07:30)
[2020-07-02 07:42] LABS: HEMATOCRIT 39.7 % (36.0-47.0); HEMOGLOBIN 13.4 g/dL (12.0-15.5); RED BLOOD COUNT 4.43 x10^6/uL (3.50-5.40); RED CELL DISTRIBUTION WIDTH 13.8 % (11.5-14.5); WHITE BLOOD COUNT 9.2 x10^3/uL (4.0-11.0)
[2020-07-02 07:55] VITALS: BP 145/70
[2020-07-02 07:58] LABS: ALBUMIN 3.2 g/dL (3.4-5.0); C REACTIVE PROTEIN 2.1 mg/L (0-3.3); CALCIUM 8.7 mg/dL (8.5-10.1); CREATININE 0.8 mg/dL (0.6-1.0); GFR 68.8; POTASSIUM 4.1 mmol/L (3.5-5.1); TOTAL BILIRUBIN 1.5 mg/dL (0.2-1.0); TOTAL PROTEIN 6.5 g/dL (6.4-8.2)
[2020-07-02] MEDS: POTASSIUM CHLORIDE 10 MEQ TABLET.ER. PO SCH (08:13)
[2020-07-02] MEDS: CARVEDILOL 12.5 MG TABLET PO SCH (08:14)
[2020-07-02] MEDS: HYDROcodone/APAP 5/325MG 1 TAB TABLET PO PRN (08:17)
[2020-07-02] MEDS ORDERED: MULTIVITAMIN with MINERAL TABLET. PO SCH (09:00)
[2020-07-02] MEDS ORDERED: CITALOPRAM 20 MG TABLET. PO SCH (09:00)
[2020-07-02] MEDS ORDERED: NON FORMULARY ITEM (Biotin 1 MG) PO SCH (09:00)
--- NOTE | 2020-07-02 09:24 | CONS ---
DATE OF CONSULTATION: 07/01/2020 NEUROLOGY CONSULTATION REFERRING PHYSICIAN: Dr. Conner. REASON FOR CONSULTATION: Syncope versus seizure. HISTORY OF PRESENT ILLNESS: This is an 79-year-old right-handed female who was admitted through emergency room on 06/29/2020 after she presented with a chief complaint of generalized weakness and dizziness along with a decreased appetite. These symptoms have been present since 03/2019 after her . Subsequently, the patient started losing weight and she reported a 40-pound weight loss since his . The patient stated symptoms have been worsened in the last 10 days and she became dehydrated and not able to eat and she related that to depression. The patient stated 2 days ago she tried to work in her garden and mainly adjusting the bird feeder. Subsequently, she fell backward and apparently she lost her consciousness for uncertain time. When she woke up, the patient was not confused or disoriented. She denies any preceding symptoms prior to the fall as chest pain, shortness of breath or palpitation, but she was somewhat dizzy. Dizziness has been reported worse when she changes her body positions from lying to sitting or from sitting to standing. The patient did not have any bowel or bladder incontinence nor did she have tongue biting or severe head injuries. In the emergency room, the patient was alert and oriented. Initial nonenhanced head CT scan revealed no acute intracranial process. Currently, the patient complains of severe lower back pain for which she has been receiving multiple narcotics and analgesics. She related her lower back pain to degenerative disk disease. The patient stated her symptoms have improved; however, she was given hydrocodone and fentanyl prior to this evaluation. PAST MEDICAL HISTORY: Significant for thyroid mass on the left side required a biopsy performed 3 days ago, but the result is still pending, chronic lower back pain secondary to degenerative disk disease, hypothyroidism, osteoarthritis, hypertension and hyperlipidemia. PAST SURGICAL HISTORY: Positive for abdominal hysterectomy, cholecystectomy, right rotator cuff repair, and right carpal tunnel release. FAMILY HISTORY: Significant for coronary artery disease. She lost her father from a myocardial infarction. Her father at the age of 47 secondary to myocardial infarction, positive history of diabetes mellitus. SOCIAL HISTORY: The patient is . Her at age of 59 due to advanced pancreatic cancer. She quit smoking years ago. She denies alcohol drinking or illicit drug use. CURRENT HOME MEDICATIONS: Include Lipitor, carvedilol, hydrocodone/acetaminophen, escitalopram, furosemide and potassium, Protonix, levothyroxine and multivitamins. ALLERGIES: ASPIRIN. REVIEW OF SYSTEMS: A 12-point review of system was performed as mentioned above, history of present illness, otherwise unremarkable. PHYSICAL EXAMINATION: GENERAL: Obese female in no acute distress. She weighs 100.7 kilos. VITAL SIGNS: Blood pressure 126/70, respiratory rate 18, pulse 65, oxygen saturation is 96% on room air and temperature is 98.4. HEENT: Normocephalic, atraumatic, otherwise unremarkable. NECK: Supple, negative for carotid bruit, lymphadenopathy or thyromegaly. LUNGS: Clear to A&P. CARDIOVASCULAR: Regular rate and rhythm, normal S1, S2. There is no S3, S4 or murmur. ABDOMEN: Soft. Bowel sounds positive. EXTREMITIES: Negative for cyanosis, clubbing or pedal edema. NEUROLOGIC: Mental status: The patient is alert and oriented x 3. Speech is fluent. There is no language dysfunction. Memory, judgment and abstracting thinking are normal. The patient denies hallucination or delusion. Cranial nerves: Visual jamil are full. The pupils are reactive to light and accommodation. Extraocular movements are intact. There is no nystagmus. There is no facial motor or sensory deficits. Hearing is intact bilaterally. The palate is elevated symmetrically. Sternocleidomastoid muscles are powerful bilaterally. The patient shrugs her shoulders symmetrically protrudes her tongue in the midline without fasciculation or atrophy. Motor: No focal muscle bulk wasting. The tone is normal. The strength is 4/5 throughout. Sensory examination revealed normal pinprick and light touch senses throughout. Deep tendon reflexes were asymmetric and hypoactive with absent Achilles responses. Gait, the stance is steady. The patient walks few steps without assistance. IMAGING: A head CT scan without contrast as described in the history of present illness, otherwise unremarkable. Chest x-ray revealed no acute cardiopulmonary process. LABORATORY DATA: CBC revealed blood cells of 11,100, hemoglobin 13.8, hematocrit 41.5, platelet count 273,000. Chemistry revealed a sodium of 141, potassium 4.5, chloride 104, CO2 32, BUN 14, creatinine 0.9, glucose 106, calcium 9.2, total bilirubin is high at 1.9. Troponin level is normal. Urinalysis negative for urinary tract infection with a small urinary leukocyte esterase. ASSESSMENT: 1. Syncopal episode and less likely a seizure. Dehydration may have contributed to the syncopal episode versus orthostatic hypotension. 2. Multiple medical problems include hypertension, hyperlipidemia, osteoarthritis and recurrent benign paroxysmal positional vertigo. RECOMMENDATIONS: 1. Continue with current management initiated by Dr. Conner. 2. Careful hydration. 3. The patient should follow up in neurology clinic to perform EMG/NCS of the lower extremities to rule out entrapment neuropathy versus lumbosacral radiculopathy. 4. If the patient continues to have vertigo, vestibular exercise may alleviate the symptoms, PT/OT evaluation and treatment. ROLANDO/FRANCO/DAVE DR: Mary TID: [id number]
[2020-07-02 11:22] VITALS: BP 115/70
--- NOTE | 2020-07-02 12:40 | PN ---
SUBJECTIVE: The patient continues to have frequent headaches throughout the night. She also complains of pain around the left clavicle region, tender to touch. She denies any new medical or neurological complaints; however, the result of the left thyroid mass is pending. OBJECTIVE: GENERAL: Obese female in no acute distress. VITAL SIGNS: Blood pressure 145/70, respiratory rate 18, pulse is 61, oxygen saturation is 96% on room air and temperature 97.9. HEENT: Normocephalic and atraumatic, otherwise unremarkable. NECK: Supple. No palpable mass, organomegaly. There is tenderness around the left clavicle regions. LUNGS: Clear to A and P. HEART: Regular rate and rhythm, normal S1 and S2. There is no S3, S4 or murmur. ABDOMEN: Soft. Bowel sounds positive. EXTREMITIES: Negative for cyanosis, clubbing or pedal edema. NEUROLOGIC: Normal mental status and intact cranial nerves. There is no facial motor or sensory deficit. Deep tendon reflexes were symmetric and active without pathologic responses. Gait: The patient uses a walker for ambulation. LABORATORY DATA: CBC revealed blood cells of 9.2000, hemoglobin 13.4, hematocrit 39.7, platelet count 266,000. Chemistry revealed a sodium of 142, potassium 4.1, chloride 106, CO2 33, BUN 10, creatinine 0.8, glucose is 100, calcium 8.7. Liver enzymes are normal. Troponin level is normal. ASSESSMENT: 1. Generalized weakness and possible syncopal episode, no recurrence. 2. Tension headaches, probably due to underlying extreme stress and depression. 3. Left thyroid mass, biopsy is pending. 4. Multiple medical problems include hypertension, hyperlipidemia, hypothyroidism, osteoarthritis, chronic low back pain secondary to degenerative disk disease. RECOMMENDATIONS: 1. Careful hydration. 2. Continue with current management initiated by Dr. Conner. 3. Physical therapy ongoing. 4. Await thyroid biopsy. 5. We will arrange for EMG/NCS of the lower extremities to rule out entrapment neuropathy versus lumbosacral radiculopathy. ROLANDO/TIMOTEO GRIMALDO: ROLANDO/kimberly TID: [id number]
--- NOTE | 2020-07-02 14:56 | DISCH ---
HOME HEALTH DISCHARGE/MEDS DISCHARGE INFORMATION: Discharge Date: July 02, 2020 Final Diagnosis: Problems Medical Problems: (1) Ataxia Status: Acute Condition on Discharge: Stable CODE STATUS: Code Status: Full HOME HEALTH: Face to Face: I certify this patient is under my care and that I, or a nurse practitioner or physician's nutritional assistant working with me, had a face to face encounter that meets the physician face to face encounter requirements with this patient on 07/02/2020 Medical Condition(s): Other Physical Therapy For: Evalulation/Treatment Occupational Therapy For: Evaluation/Treatment Homebound Status Met By: Unsteady balance w/ amb, POST DISCHARGE ORDERS: Activity Instructions for Disc: Activity as tolerated DIET AFTER DISCHARGE: Cardiac CERTIFICATION STATEMENT: Certification Statement: Based on the above finding, I certify that this patient is confined to the home and needs intermittent snf care, physical therapy and/or speech therapy, or continues to need occupational therapy.~ This patient is under my care, and I have initiated the establishment of the plan of care.~ This patient will be followed by myself or a community physician who will periodically review the plan of care. DISCHARGE MEDICATIONS: Home Meds Reported Medications Biotin (BIOTIN) 1 Mg Tablet, 1 MG PO DAILY for SUPPLEMENT, TAB 06/30/20 Multivits-Min/Fa/Lycopene/Lut (CENTRUM SILVER TABLET) 1 Each Tablet, 1 EACH PO DAILY for SUPPLEMENT, TAB 06/30/20 Hydrocodone/Acetaminophen (Hydrocodone-Acetamin 5-325 mg) 1 Each Tablet, 1 EACH PO PRN BID PRN for PAIN, TAB 06/30/20 Potassium Chloride (KLOR-CON 10) 10 Meq Tablet.er, 10 MEQ PO BIDWMEALS for SUPPLEMENT, TAB.SR 06/30/20 Escitalopram Oxalate (ESCITALOPRAM OXALATE) 20 Mg Tablet, 20 MG PO DAILY for ANTI-DEPRESSANT, #30 TAB 0 Refills 06/30/20 Furosemide (FUROSEMIDE) 20 Mg Tablet, 20 MG PO DAILY for SWELLING, TAB 06/30/20 Carvedilol (CARVEDILOL) 25 Mg Tablet, 25 MG PO BID for CARDIAC, TAB 06/30/20 Levothyroxine Sodium (SYNTHROID) 100 Mcg Tablet, 100 MCG PO DAILYAC for THYROID SUPPLEMENT, #30 TAB 0 Refills 06/30/20 Atorvastatin Calcium (LIPITOR) 80 Mg Tablet, 80 MG PO QHS for FOR CHOLESTEROL, #30 TAB 0 Refills 06/30/20 Pantoprazole Sodium (PROTONIX) 40 Mg Tablet.dr, 40 MG PO DAILYAC for REFLUX, TAB 06/30/20 Discontinued Scripts Azithromycin (AZITHROMYCIN TABLET) 250 Mg Tablet, 1 PKG PO UD for PNEUMONIA for 5 Days, #6 TAB 0 Refills 2 the first day followed by 1 for days 2-5 Prov:DANYA HEIN APRN 05/19/20 GEM CASAREZ MD July 02, 2020 14:56
--- NOTE | 2020-07-02 15:20 | DS ---
DATE OF DISCHARGE: 07/02/2020 HOSPITAL COURSE: The patient is an 79-year-old female patient who was admitted with generalized weakness and possible syncopal episode. She has had no further syncopal episodes observed while inpatient. She has no evidence of postural hypotension. She was seen in consultation by the physical therapist as well as Dr. Ibarra the neurologist and plan was to continue with physical therapy and to discharge home with home health and for her to be seen at Dr. Ibarra's office for EMG and nerve conduction studies of her lower extremities to rule out entrapment neuropathy versus lumbosacral radiculopathy. Questioning her today, she stated that she is generally feeling much better, has been ambulating with a walker without any assistance. PHYSICAL EXAMINATION: GENERAL: When I examined her, she was somewhat pale, but no jaundice, cyanosis, thyromegaly, jugular venous distention or limb edema. VITAL SIGNS: Heart rate was 85, blood pressure 115/70, temperature 98.1, respiratory rate was 17 and oxygen saturation was 94% on room air. HEAD, EYES, EARS, NOSE AND THROAT: Showed normocephalic and atraumatic. NECK: Supple. HEART: Showed normal first and second heart sounds. No gallop or murmur. CHEST: Clear to auscultation. No crepitation or rhonchi. ABDOMEN: Distended, soft, nontender. NEUROLOGIC: She was awake, alert, responding appropriately. Cranial nerves intact. She moves extremities without difficulty. LABORATORY DATA: This morning showed a white cell count 9000, hemoglobin 13, hematocrit 39, MCV 90 and platelet count 266,000. Her chemistry showed a serum sodium 142, potassium 4.1, chloride 106, bicarbonate 33, anion gap of 3, BUN 10, creatinine 0.8. Estimated GFR was 68 mL per minute. Her glucose was 100, calcium was 8.7, ____. Total bilirubin 1.5, AST, ALT, alkaline phosphatase were normal. Total protein was 6.5, albumin 3.2. C-reactive protein was 2.1. Her CK was only 39. Urinalysis was essentially unremarkable. DISCHARGE MEDICATIONS: She was discharged home to continue on her atorvastatin calcium 80 mg at bedtime, Biotin 1 mg once a day, carvedilol 25 mg twice a day, escitalopram oxalate 20 mg once a day, furosemide 20 mg daily, hydrocodone/APAP 5/325 one tablet twice a day as needed, levothyroxine sodium 100 mcg once a day, multivitamin one tablet once a day, Protonix 40 mg once a day and potassium chloride 10 mEq twice a day. FINAL DISCHARGE DIAGNOSES: 1. Generalized weakness, poor appetite and poor oral intake has resolved. The patient has no further episodes of syncope. The patient was seen by physical and occupational therapy and recommended discharging home with home health. She has multiple other medical problems including: A. Hypertension. B. Hyperlipidemia. C. Hypothyroidism. D. Chronic back pain. E. Osteoarthritis. F. Degenerative disk disease. WARREN/TIMOTEO DR: Carlos TID: [id number]
--- NOTE | 2020-07-02 16:15 | NUR ---
NURSING NOTE DISCHARGE PT DISCHARGED HOME WITH [facility] AMBULATION PICKED UP BY DAUGHTER. PT GIVEN WRITTEN AND VERBAL DISCHARGE INSTRUCTIONS. NO SCRIPTS GIVEN. GERARDO BOLAÑOS.
== END 2020-07-02 16:17 | disposition home health service (06) | DRG 641 ==
LOC: ER 17:08 → 1 SOUTH 21:16
PROVIDERS: ADMIT Hospitalist; ATTEND Internal Medicine
DX: E86.0 Dehydration (principal); E03.9 Hypothyroidism, unspecified; E78.00 Pure hypercholesterolemia, unspecified; M51.17 Intervertebral disc disorders with radiculopathy, lumbosacral region; E78.5 Hyperlipidemia, unspecified; F32.9 Major depressive disorder, single episode, unspecified; G44.209 Tension-type headache, unspecified, not intractable; G89.29 Other chronic pain; H81.10 Benign paroxysmal vertigo, unspecified ear; I10 Essential (primary) hypertension; M19.90 Unspecified osteoarthritis, unspecified site; Z82.49 Family history of ischemic heart disease and other diseases of the circulatory system; Z83.3 Family history of diabetes mellitus; Z87.891 Personal history of nicotine dependence; Z90.49 Acquired absence of other specified parts of digestive tract; Z90.710 Acquired absence of both cervix and uterus; K21.9 Gastro-esophageal reflux disease without esophagitis; Z88.8 Allergy status to other drugs, medicaments and biological substances
CPT/HCPCS: 36415; 70450; 71046; 80053; 81001; 82550; 84443; 84484; 85025; 85027; 85651; 86140; 87086; 93005; 96361; 96374; 96375; J2405; J3010; 97110; 97116; 97530; 97535; 99285-25; J7030

== ENCOUNTER 2020-07-04 10:57 | Emergency (ER) | payer MEDICARE ==
[~2020-07-04] VITALS: Ht 167.6 cm; Wt 100.7 kg
[~2020-07-04 10:57] MED LIST changes: +BIOT1TAB2 PO; +CARV25TA2 PO; +ESCITALOPRAM OX20 MG PO; +FURO20TA3 PO; +HYDR-2759 PO; +LEVO100T PO; +LIPITOR80 MG PO; +MULT-658 PO; +PANT40TA3 PO; +POTA10TA5 PO
[2020-07-04 11:00] VITALS: BP 177/67
[2020-07-04] MEDS ORDERED: ONDANSETRON ODT 4 MG TAB.RAPDIS PO ONE (11:15)
--- NOTE | 2020-07-04 11:33 | PHYS DOC ---
Past History Past Medical History: Arthritis, GERD, High Cholesterol, Hypertension, Hypothyroid Additional Past Medical Histor: low potassium Past Surgical History: Appendectomy, Cholecystectomy, Hysterectomy, Tonsillectomy, Other Additional Past Surgical Histo: right shoulder Alcohol Use: None Adult General Chief Complaint Chief Complaint: MULTIPLE COMPLAINTS HPI HPI Patient is a 79-year-old female presenting for nausea. Onset was yesterday evening. She cannot recall what she had for lunch but reports generalized nausea with several episodes of "dry heaving" without legitimate emesis. She reports this persisted when she woke up today which concerned her prompting her to come in for evaluation. She was recently discharged from our facility approximately 48 hours ago for generalized weakness, poor appetite and poor p.o. intake and was subsequently discharged home with home health. She has not taken any of her daily medications this morning due to fear of emesis and subsequently is concerned because her blood pressure is elevated. No fever, no trauma or falls, no chest pain or shortness of breath, no abdominal pain or dysuria noted. She reports her recently passing and since then, has been living at home and been more anxious than usual Review of Systems Review of Systems Fourteen body systems of review of systems have been reviewed. See HPI for pertinent positives and negative responses, other valencia all other systems are negative, non-pertinent or non-contributory Current Medications Current Medications Current Medications Medications (Trade) Dose Ordered Sig/Jamie Start Time Stop Time Status Last Admin Dose Admin Ondansetron HCl (Zofran Odt) 4 mg 1X ONCE 07/04/20 11:15 07/04/20 11:18 DC 07/04/20 11:23 4 MG Allergies Allergies Allergies Coded Allergies Type Severity Reaction Last Updated Verified aspirin Adverse Reaction Mild 05/19/20 Yes Physical Exam Physical Exam Constitutional: Well developed, well nourished, no acute distress, non-toxic appearance. HENT: Normocephalic, atraumatic, bilateral external ears normal, oropharynx moist, no oral exudates, nose normal. Eyes: PERRLA, EOMI, conjunctiva normal, no discharge. Neck: Normal range of motion, no tenderness, supple, no stridor. Cardiovascular: Heart rate regular, sinus rhythm, no murmurs rubs or gallops Lungs & Thorax: Bilateral breath sounds clear to auscultation Abdomen: Bowel sounds normal, soft, no tenderness, no masses, no pulsatile masses. Nonsurgical abdomen, no peritoneal signs Skin: Warm, dry, no erythema, no rash. Back: No tenderness, no CVA tenderness. Extremities: No tenderness, no cyanosis, no clubbing, ROM intact, no edema. Neurologic: Alert and oriented X 3, grossly normal motor & sensory function, no focal deficits noted. Psychologic: Anxious affect and mood Current Patient Data Vital Signs Vital Signs Date Time Temp Pulse Resp B/P (MAP) Pulse Ox O2 Delivery O2 Flow Rate FiO2 07/04/20 10:57 67 22 177/67 (103) 97 Room Air Lab Results Current Medications Medications (Trade) Dose Ordered Sig/Jamie Route PRN Reason Start Time Stop Time Status Last Admin Dose Admin Ondansetron HCl (Zofran Odt) 4 mg 1X ONCE PO 07/04/20 11:15 07/04/20 11:18 DC 07/04/20 11:23 Carvedilol (Coreg) 25 mg BIDWMEALS PO 07/04/20 13:15 07/04/20 20:11 DC EKG EKG EKG ordered and interpreted by myself at 1110 hrs. as sinus rhythm at 71 bpm, prolonged NJ at 208 otherwise unremarkable intervals, left axis deviation, no acute ischemic findings, no STEMI Radiology/Procedures Radiology/Procedures [] Heart Score C/O Chest Pain: No HEART Score for Chest Pain: HEART Score for Chest Pain Response (Comments) Value History Slighlty/Non-Suspicious 0 ECG Normal 0 Age > 65 2 Risk Factors >3 Risk Factors or Hx CAD 2 Troponin < Normal Limit 0 Total 4 Risk Factors: Risk Factors: DM, Current or recent (<one month) smoker, HTN, HLP, family history of CAD, obesity. Risk Scores: Risk Factors: DM, Current or recent (<one month) smoker, HTN, HLP, family history of CAD, obesity. Course & Med Decision Making Course & Med Decision Making Hemodynamically stable patient with HPI and physical exam nonconcerning for emergent or surgical issues 4 mg ODT Zofran administered with total improvement in symptoms. ER work-up ensued and unremarkable. I reviewed entirety of recent inpatient hospitalization that included physical therapy consultation notes etc. Patient likely suffering from complicated grief. Her p.o. intake is not been adequate. She has been having occasional dry heaves with depressed mood, states the sight and smell of food bothers her since the of her in March 2020. She has not seen PCP for this I disclose no acute emergent or surgical findings today, that her vital signs and physical exam was nonconcerning. She was asymptomatic after Zofran administration. She is tearful throughout entirety of examination without SI or HI. I discussed that she would benefit from outpatient follow-up with primary care physician to discuss role of counseling another potential medical therapies such as mirtazapine that could help with mood and current eating issues, patient david méndez this is a great idea I did disclose this might be an acute presentation of more concerning pathology but given that patient has had extensive ER work-up and inpatient hospitalization with several consulting services and is going home to good family support and recently started home health, joint decision to discharge home. Strict return precautions were discussed with good understanding by patient, all questions and concerns addressed prior to ER departure with new prescription for Zofran for as needed use Dragon Disclaimer Dragon Disclaimer This electronic medical record was generated, in whole or in part, using a voice recognition dictation system. Departure Departure: Impression: Primary Impression: Nausea Additional Impression: Complicated grief Disposition: 01 HOME / SELF CARE / HOMELESS Condition: STABLE Referrals: IVAN ZACARIAS (PCP) Additional Instructions: You were seen for nausea. Your vital signs and physical exam was reassuring. Your ER work-up and recent hospitalization was reviewed and all nonconcerning for any emergent or surgical findings. As discussed, your symptoms might be due to the fact that your food/fluid intake has been poor which is understandable given recent events. As discussed, it is pertinent that you follow-up with your primary care physician to discuss treatment options in the outpatient setting. You would benefit from continued nutritional support such as boost or Ensure sh akes and it would be beneficial for you to talk about starting mirtazapine with your primary care physician. You have been prescribed a short-term dose of antinausea medicine that you should use as needed for your symptoms. You should return to the ED if you develop abdominal pain, fever > 100.3, black/bloody stools, black/bloody vomiting, cannot keep water down, or any other new or concerning symptoms. Scripts Ondansetron Hcl (ZOFRAN) 4 Mg Tablet 1 TAB PO Q8HRS for NAUSEA, #15 TAB Prov: SHERMAN ABEBE DO 07/04/20 Problem Qualifiers SHERMAN ABEBE DO July 04, 2020 11:33
--- NOTE | 2020-07-04 12:29 | EKG ---
[address] [address] Test Date: 2020-07-04 Test Time: 11:05:38 Pat Name: KIARA GALLEGOS Department: Room: Gender: F [employer] Printer: MATHEUS : [id number] Requested By: SHERMAN ABEBE Order Number: [id number] Reading MD: Measurements Intervals [place] Rate: 71 P: 26 ME: 208 QRS: -7 QRSD: 82 T: 40 QT: 398 QTc: 437 Interpretive Statements SINUS RHYTHM LEFTWARD AXIS OTHERWISE NORMAL ECG RI6.02 No previous ECG available for comparison
[2020-07-04 12:39] LABS: BASO # 0.1 x10^3/uL (0.0-0.2); BASO % 1 % (0-3); EOS # 0.1 x10^3/uL (0.0-0.7); EOS % 1 % (0-3); HEMOGLOBIN 13.8 g/dL (12.0-15.5); LYMPH % 16 % (24-48); MEAN CORPUSCULAR HEMOGLOBIN 30 pg (25-35); MEAN CORPUSCULAR HGB CONC 34 g/dL (31-37); MEAN CORPUSCULAR VOLUME 90 fL (79-100); MONO # 0.8 x10^3/uL (0.0-1.1); MONO % 7 % (0-9); NEUT # 9.3 x10^3uL (1.8-7.7); NEUT % 76 % (31-73); PLATELET COUNT 273 x10^3/uL (140-400); RED BLOOD COUNT 4.57 x10^6/uL (3.50-5.40); RED CELL DISTRIBUTION WIDTH 13.7 % (11.5-14.5); WHITE BLOOD COUNT 12.3 x10^3/uL (4.0-11.0)
[2020-07-04 12:49] LABS: CALCIUM 9.2 mg/dL (8.5-10.1); CREATININE 0.9 mg/dL (0.6-1.0); GFR 60.1; POTASSIUM 4.3 mmol/L (3.5-5.1)
[2020-07-04 12:56] LABS: ALBUMIN 3.5 g/dL (3.4-5.0); ALBUMIN/GLOBULIN RATIO 1.2 (1.0-1.7); TOTAL BILIRUBIN 1.6 mg/dL (0.2-1.0); TOTAL PROTEIN 6.4 g/dL (6.4-8.2)
[2020-07-04] MEDS ORDERED: CARVEDILOL 12.5 MG TABLET PO SCH (13:15)
[2020-07-04] MEDS ORDERED: ONDA4TAB7 PO (13:28)
== END 2020-07-04 14:17 | disposition home or self-care (01) ==
LOC: ER 10:57
DX: R53.1 Weakness (principal); R11.0 Nausea; F43.21 Adjustment disorder with depressed mood; K21.9 Gastro-esophageal reflux disease without esophagitis; E78.5 Hyperlipidemia, unspecified; I10 Essential (primary) hypertension; Z90.49 Acquired absence of other specified parts of digestive tract; Z90.710 Acquired absence of both cervix and uterus; Z88.6 Allergy status to analgesic agent
CPT/HCPCS: 36415; 80053; 84484; 85025; 93005; 99284; Q0162

== ENCOUNTER 2020-07-15 08:11 | Emergency (ER) | payer MEDICARE ==
[~2020-07-15] VITALS: Ht 167.6 cm; Wt 100.7 kg
[~2020-07-15 08:11] MED LIST changes: +ONDA4TAB7 PO
[2020-07-15 08:58] VITALS: BP 156/93
--- NOTE | 2020-07-15 09:25 | PHYS DOC ---
Past History Past Medical History: Arthritis, GERD, High Cholesterol, Hypertension, Hypothyroid Additional Past Medical Histor: low potassium Past Surgical History: Appendectomy, Cholecystectomy, Hysterectomy, Tonsillectomy, Other Additional Past Surgical Histo: right shoulder Alcohol Use: None Adult General Chief Complaint Chief Complaint: BACK PAIN OR INJURY [facility] HPI Patient is a is an 79-year-old female presenting for fall. She presents with granddaughter. Reports 4 days ago suffering a mechanical fall at home which she landed on her left humerus and rolled towards her back hitting her left hip and tailbone. Patient denies any prodromal symptoms or other concerning/stated findings prior to the fall, simply reports she tripped over her feet. Did not hit her head, no loss of consciousness. She has been ambulatory since but admits pain. She has prescribed home pain medication which has taken the edge off but not fully helped. Does admit x2 areas of bruising to left upper extremity but still has adequate motor, sensory and neurologic function of left upper extremities and lower extremities. No bladder or bowel incontinence, no saddle anesthesia. Of note, patient was recently diagnosed with incidental PE and started Eliquis Review of Systems Review of Systems Fourteen body systems of review of systems have been reviewed. See HPI for pertinent positives and negative responses, other valencai all other systems are negative, non-pertinent or non-contributory Allergies Allergies Allergies Coded Allergies Type Severity Reaction Last Updated Verified aspirin Adverse Reaction Mild 05/19/20 Yes Physical Exam Physical Exam Constitutional: Pt is oriented to person, place, and time. Pt appears well-developed and well- nourished. HEENT: Head: Normocephalic and atraumatic. TMs clear, no hemotympanum Conjunctivae and EOM are normal. Pupils are equal, round, and reactive to light. Oropharynx is clear and moist. No hematomas or lacerations or abrasions to face or scalp OP clear, no blood, no malocclusion, dentition intact Nares clear, no nasal septal hematoma Midface stable Neck: C-spine midline nontender, no step-offs Cardiovascular: Normal rate, regular rhythm and normal heart sounds. Pulmonary/Chest: Effort normal and breath sounds normal. No respiratory distress. No wheezes. CTA bilaterally Abdominal: Soft. Bowel sounds are normal. Pt exhibits no distension. There is no tenderness. Musculoskeletal: No bony tenderness to extremities, no deformities, full ROM extremities although patient reports limited ROM per baseline due to pain Chest wall stable Pelvis stable with tenderness over left lateral hip to palpation No vertebral TTP and spine without stepoffs Neurological: Pt is alert and oriented to person, place, and time. Moving all extremities willfully, able to wiggle all fingers and toes Alert and oriented x 3 Motor and sensory function fully intact Cranial nerves II through XII intact Patellar reflexes 2+ bilaterally Skin: Skin is warm and dry. No abrasions, no lacerations. There is an ecchymosis present to left mid humerus and over left deltoid muscle Psychiatric: Tearful affect, anxious mood Current Patient Data Vital Signs Vital Signs Date Time Temp Pulse Resp B/P (MAP) Pulse Ox O2 Delivery O2 Flow Rate FiO2 07/15/20 08:58 75 18 156/93 (114) 98 EKG EKG [] Radiology/Procedures Radiology/Procedures XR SACRUM AND COCCYX 2+VIEWS, XR BILATERAL HIP (WITH OR WITHOUT PELVIS) LEFT 2 VIEWS History: Reason: FALL TO LEFT SIDE / Spl. Instructions: / History: Technique: PA view the pelvis, 2 views left hip and 3 views coccyx and sacrum Comparison: None. Findings: Normal alignment of the hips. No fracture. Lower lumbar spondylosis. Mild right hip DJD. Moderate left hip DJD. Mild bilateral sacroiliac DJD. Normal alignment of the sacrum and coccyx. No definite fracture. Impression: 1. No acute osseous abnormality. 2. 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 3. Lower lumbar spondylosis. Electronically signed by: oBb Adhikari DO (07/15/2020 10:56 AM) [facility] [place] ///////////////////// XR HUMERUS_LT 2 VIEWS History: Reason: FALL TO LEFT SIDE, LEFT ARM PAIN / Spl. Instructions: / History: Technique: 2 views left humerus Comparison: None. Findings: Normal alignment. No fracture. Soft tissues unremarkable. Mild left glenohumeral DJD. Calcified intra-articular loose body. Impression: 1. No acute osseous abnormality. Electronically signed by: Bob Adhikari DO (07/15/2020 10:53 AM) [facility] [place] Heart Score C/O Chest Pain: No Risk Factors: Risk Factors: DM, Current or recent (<one month) smoker, HTN, HLP, family history of CAD, obesity. Risk Scores: Risk Factors: DM, Current or recent (<one month) smoker, HTN, HLP, family history of CAD, obesity. Course & Med Decision Making Course & Med Decision Making Discussed with the patient all findings and diagnostic testing. I discussed most likely diagnosis of musculoskeletal type pain that is most likely self-limiting in etiology such as contusion status post fall. I discussed little utility in further diagnostic work-up in ER setting, disclosed initial concern of patient being on blood thinner but after patient fully described fall that was low risk without hitting head or loss of consciousness in fact that this was suffered 4 days ago without any concerning signs or symptoms, joint decision to defer CT head imaging. I stressed need for close outpatient follow-up to review today's ER visit. Strict return precautions were also discussed at length with good understanding by patient. Patient voiced understanding and agreement with the plan. Patient knows to come back for repeat evaluation if concerning signs or symptoms present prior to outpatient follow-up. Hemodynamically stable, ambulatory and well-appearing at time of disposition. Dragon Disclaimer Dragon Disclaimer This electronic medical record was generated, in whole or in part, using a voice recognition dictation system. Departure Departure: Impression: Primary Impression: Chronic lower back pain Additional Impressions: History of recent fall Contusion of left upper extremity Disposition: HOME / SELF CARE / HOMELESS Condition: STABLE Referrals: IVAN ZACARIAS (PCP) Patient Instructions: Back Exercises, Contusion Additional Instructions: You were evaluated in the Emergency Department today for back and left upper extremity pain. Your evaluation suggests no acute abnormalities which require further intervention at this time. Your pain is most likely due to to a musculoskeletal cause that should improve with supportive care. - Move around as tolerated but avoiding heavy lifting. ``Bed rest is not r ecommended nor is it the best treatment for low back pain. - Medications will help control your discomfort: - -Ibuprofen (800 mg every 8 hours for pain) with food. - -Tylenol - -Regularly prescribed home narcotic pain medication - Do not drink alcohol, drive a car, operate machinery, or get up on ladders or heights when taking any prescribed pain medications. - Do not drive home if you received prescribed pain medications here in the ED. Return to the ED immediately if you develop any of the following problems: - Leaking urine or difficulty urinating; - Inability to control your bowels; - New numbness or weakness in your legs or numbness between your legs; - Inability to walk - Fever Problem Qualifiers SHERMAN ABEBE DO Jul 15, 2020 09:25
[2020-07-15] MEDS: HYDROcodone/APAP 7.5/325MG 1 TAB TABLET PO ONE (09:30)
[2020-07-15] MEDS: KETOROLAC 60 MG/2 ML VIAL. IM ONE (10:01)
--- NOTE | 2020-07-15 10:56 | RAD ---
XR HUMERUS_LT 2 VIEWS History: Reason: FALL TO LEFT SIDE, LEFT ARM PAIN / Spl. Instructions: / History: Technique: 2 views left humerus Comparison: None. Findings: Normal alignment. No fracture. Soft tissues unremarkable. Mild left glenohumeral DJD. Calcified intra -articular loose body. Impression: 1. No acute osseous abnormality. Electronically signed by: Bob Adhikari DO (07/15/2020 10:53 AM) [facility]
--- NOTE | 2020-07-15 10:59 | RAD ---
XR SACRUM AND COCCYX 2+VIEWS, XR BILATERAL HIP (WITH OR WITHOUT PELVIS) LEFT 2 VIEWS History: Reason: FALL TO LEFT SIDE / Spl. Instructions: / History: Technique: PA view the pelvis, 2 views left hip and 3 views coccyx and sacrum Comparison: None. Findings: Normal alignment of the hips. No fracture. Lower lumbar spondylosis. Mild right hip DJD. Moderate lef t hip DJD. Mild bilateral sacroiliac DJD. Normal alignment of the sacrum and coccyx. No definite fracture. Impression: 1. No acute osseous abnormality. 2. 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 3. Lower lumbar spondylosis. Electronically signed by: Bob Adhikari DO (07/15/2020 10:56 AM) [facility]
== END 2020-07-15 11:49 | disposition home or self-care (01) ==
LOC: ER 08:11
DX: S40.022A Contusion of left upper arm, initial encounter (principal); G89.29 Other chronic pain; M54.5 Low back pain; M19.90 Unspecified osteoarthritis, unspecified site; K21.9 Gastro-esophageal reflux disease without esophagitis; E78.00 Pure hypercholesterolemia, unspecified; I10 Essential (primary) hypertension; E03.9 Hypothyroidism, unspecified; Z90.89 Acquired absence of other organs; Z90.49 Acquired absence of other specified parts of digestive tract; Z90.710 Acquired absence of both cervix and uterus; Z88.6 Allergy status to analgesic agent; W18.39XA Other fall on same level, initial encounter; Y93.89 Activity, other specified; Y92.89 Other specified places as the place of occurrence of the external cause; Y99.8 Other external cause status
CPT/HCPCS: 72220; 73060; 73502; 96372; 99284; J1885

== ENCOUNTER → 2020-08-24 | Outpatient (CLI) | payer MEDICARE ==
--- NOTE | 2020-08-24 13:48 | RAD ---
EXAM: Renal sonogram. HISTORY: Renal cyst on the CT angiogram. TECHNIQUE: Sonographic imaging of the kidneys and bladder was performed. COMPARISON: None. FINDINGS: The kidneys are normal in size. There is a simple appearing cyst within the upper pole the left kidney measuring 8.9 cm in maximum dimension. There are few additional smaller simple cysts. The prevoid bladder volume is 104 cc. The right ureteral jet is not seen during the exam. The left urete ral jet is visualized. IMPRESSION: 1. Multiple simple appearing left renal cysts, largest of which measures 8.9 cm. 2. No acute sonographic finding. Electronically signed by: Sharlene Humphries MD (08/24/2020 1:45 PM) [id number]
== END ==
LOC: US 12:47
PROVIDERS: ATTEND Family Medicine
DX: N28.1 Cyst of kidney, acquired (principal)
CPT/HCPCS: 76770